=== PATIENT | female | born 1985 | race Caucasian/White ===

== ENCOUNTER 2017-02-10 13:16 | Emergency (ER) | payer OTHER ==
[~2017-02-10] VITALS: Ht 165.1 cm; Wt 94.7 kg
[~2017-02-10 13:16] MED LIST: AMOXICILLIN500 M1 PO; DEBROX15 ML BOTH EARS; DIFLUCAN150 MG PO; FLONASE16 G1 BOTH NARES; INDOCIN25 MG PO; NOHOMEMEDS; PEN-VEE K,VEET500 MG PO; PERCOCET 5/31 TABLET PO; TESSALON PERLE100 MG PO; ULTRACET1 TABLET PO; VALIUM5 MG PO
[2017-02-10 16:20] LABS: HEMATOCRIT 40.5 % (36.0-46.0); MCH 30.6 PG (29.0-34.0); MCHC 33.1 G/DL (30.0-36.0); MCV 92.5 FL (83-99); MEAN PLAT.VOLUME 9.3 uM^3 (9.5-12.4); PLATELET COUNT 312 K/uL (156-360); RBC DIS.WIDTH-CV 12.1 % (11.8-14.6); RBC DIS.WIDTH-SD 41.1 % (39-53); RED BLOOD COUNT 4.38 M/uL (3.80-5.20); WHITE BLOOD COUNT 7.9 K/uL (4.1-10.2)
[2017-02-10 16:25] LABS: ADD MIUA? YES; BILIRUBIN NEGATIVE; BLOOD NEGATIVE; COLOR YELLOW ((YELLOW)); GLUCOSE (STRIP) NEGATIVE; KETONES NEGATIVE; LEUKOCYTES SMALL; NITRITE NEGATIVE; PROTEIN (STRIP) 30; SPECIFIC GRAVITY 1.015 (1.000-1.030); UROBILINOGEN 0.2 MG/DL (0.2-1.0)
[2017-02-10 16:26] LABS: INTERNAL CONTROL VALID? YES
[2017-02-10 16:30] LABS: CHLORIDE 104 mEq/L (99-109); POTASSIUM 3.8 mEq/L (3.7-5.4); SODIUM 139 mEq/L (136-147)
[2017-02-10 16:32] LABS: GLUCOSE 120 mg/dL (70-99)
[2017-02-10 16:34] LABS: ANION GAP 9 MEQ/L (2-14)
[2017-02-10 16:36] LABS: GFR ESTIMATE (CALCULATED) > 59 mL/min/
[2017-02-10 16:37] LABS: UREA NITROGEN (BUN) 10 mg/dL (9-23)
[2017-02-10 16:43] LABS: TROP-I INTERPRETATION NEGATIVE; TROPONIN-I < 0.01 ng/mL (0.0-0.30)
[2017-02-10 16:45] LABS: RED BLOOD CELLS 0-5 /HPF (0-5)
[2017-02-10 16:46] LABS: WHITE BLOOD CELLS 0-5 /HPF (0-5)
[2017-02-10 16:47] LABS: AMORPHOUS PHOSPHATE CRYSTALS 4+
[2017-02-10 16:49] LABS: EPITHELIAL CELLS 2+ /HPF; UCUL ADDED? NO
[2017-02-10 16:50] LABS: MUCUS TRACE /LPF
[2017-02-10] MEDS ORDERED: LASIX20 MG PO (18:30)
[2017-02-10 19:09] VITALS: BP 140/75
== END 2017-02-10 19:10 | disposition home or self-care (01) ==
LOC: EME 13:16
PROVIDERS: Physician Assistant
DX: R07.89 Other chest pain (principal); R60.0 Localized edema; M79.602 Pain in left arm; R20.0 Anesthesia of skin; R82.99 Other abnormal findings in urine; F17.200 Nicotine dependence, unspecified, uncomplicated
CPT/HCPCS: 71020; 80048; 81003; 84484; 84703; 85027; 93005; 99281; 99284

== ENCOUNTER 2017-06-12 09:47 | Emergency (ER) | payer OTHER ==
[~2017-06-12] VITALS: Ht 165.1 cm; Wt 88.1 kg
[~2017-06-12 09:47] MED LIST changes: +LASIX20 MG PO
[2017-06-12 11:06] LABS: ADD MIUA? YES; BILIRUBIN NEGATIVE; BLOOD NEGATIVE; COLOR AMBER ((YELLOW)); GLUCOSE (STRIP) NEGATIVE; KETONES 5; LEUKOCYTES SMALL; NITRITE NEGATIVE; PROTEIN (STRIP) 30; SPECIFIC GRAVITY 1.025 (1.000-1.030)
[2017-06-12 11:16] LABS: BACTERIA NONE SEEN /HPF; EPITHELIAL CELLS 2+ /HPF; MUCUS TRACE /LPF; RED BLOOD CELLS 0-5 /HPF (0-5)
[2017-06-12] MEDS ORDERED: ZITHROMAX500 MG PO (11:49)
[2017-06-12] MEDS ORDERED: FLAGYL500 MG PO (11:49)
[2017-06-12 12:09] VITALS: BP 131/77
[2017-06-13 13:39] LABS: CHLAMYDIA TRACHOMATIS NEGATIVE; NEISSERIA GONORRHOEAE POSITIVE
== END 2017-06-12 12:10 | disposition home or self-care (01) ==
LOC: EME 09:47
PROVIDERS: Nurse Practitioner Family
DX: N76.0 Acute vaginitis (principal); B96.89 Other specified bacterial agents as the cause of diseases classified elsewhere; J02.0 Streptococcal pharyngitis; Z20.2 Contact with and (suspected) exposure to infections with a predominantly sexual mode of transmission; F17.200 Nicotine dependence, unspecified, uncomplicated; F42.9 Obsessive-compulsive disorder, unspecified
CPT/HCPCS: 81003; 87210; 87491; 87591; 87651 90; 99281; 99284; J0696

== ENCOUNTER 2018-04-05 13:54 | Emergency (ER) | payer OTHER ==
[~2018-04-05] VITALS: Ht 165.1 cm; Wt 97.8 kg
[~2018-04-05 13:54] MED LIST changes: +FLAGYL500 MG PO; +ZITHROMAX500 MG PO
[2018-04-05 14:17] VITALS: BP 147/87
[2018-04-05 14:22] LABS: APPEARANCE CLOUDY ((CLEAR)); BILIRUBIN NEGATIVE; BLOOD SMALL; COLOR YELLOW ((YELLOW)); GLUCOSE (STRIP) NEGATIVE; KETONES NEGATIVE; LEUKOCYTES NEGATIVE; NITRITE NEGATIVE; PROTEIN (STRIP) 30; SPECIFIC GRAVITY 1.023 (1.000-1.030); UROBILINOGEN 0.2 MG/DL (0.2-1.0)
[2018-04-05 14:30] LABS: HEMATOCRIT 40.9 % (36.0-46.0); HEMOGLOBIN 14.2 G/DL (11.9-15.5); MCH 31.6 PG (29.0-34.0); MCHC 34.7 G/DL (30.0-36.0); MCV 90.9 FL (83-99); PLATELET COUNT 422 K/uL (156-360); RBC DIS.WIDTH-CV 12.5 % (11.8-14.6); RBC DIS.WIDTH-SD 41.2 % (39-53); WHITE BLOOD COUNT 12.1 K/uL (4.1-10.2)
[2018-04-05 14:38] LABS: ALBUMIN 4.8 g/dL (3.2-4.8); CHLORIDE 106 mEq/L (99-109); POTASSIUM 4.8 mEq/L (3.7-5.4); SODIUM 141 mEq/L (136-147)
[2018-04-05 14:40] LABS: EPITHELIAL CELLS 2+ /HPF
[2018-04-05 14:41] LABS: GLUCOSE 134 mg/dL (70-99); TOTAL PROTEIN 7.7 g/dL (6.4-8.3)
[2018-04-05 14:41] LABS: AMORPHOUS URATES CRYSTALS 1+; BACTERIA 1+ /HPF; MUCUS NONE SEEN /LPF; RED BLOOD CELLS 0-5 /HPF (0-5); UCUL ADDED? NO; WHITE BLOOD CELLS 0-5 /HPF (0-5)
[2018-04-05 14:42] LABS: TOTAL BILIRUBIN 0.5 mg/dL (0.0-1.0)
[2018-04-05 14:44] LABS: ALKALINE PHOSPHATASE 67 IU/L (3-129); CREATININE 0.8 mg/dL (0.6-1.3); GFR ESTIMATE (CALCULATED) > 59 mL/min/
[2018-04-05 14:46] LABS: AST (GOT) 15 IU/L (2-34); UREA NITROGEN (BUN) 13 mg/dL (9-23)
[2018-04-05 14:47] LABS: ALT (GPT) 21 IU/L (3-49)
[2018-04-05 14:53] LABS: QUANTITATIVE HCG < 4.0 MIU/ML
[2018-04-05 15:23] LABS: SOURCE SWAB
[2018-04-05 20:52] LABS: CANDIDA DNA PROBE NEGATIVE; GARDNERELLA DNA PROBE POSITIVE; TRICHOMONAS DNA PROBE NEGATIVE
== END 2018-04-05 16:19 | disposition left against medical advice (07) ==
LOC: EME 13:54
PROVIDERS: Physician Assistant
DX: N89.8 Other specified noninflammatory disorders of vagina (principal); R35.0 Frequency of micturition; Z87.440 Personal history of urinary (tract) infections; F17.200 Nicotine dependence, unspecified, uncomplicated; Z88.5 Allergy status to narcotic agent
CPT/HCPCS: 80053; 81003; 84702; 85027; 87086; 87210; 87480; 87491; 87510; 87591; 87660